=== PATIENT | female | born 1970 | race Caucasian/White ===

== ENCOUNTER 2023-10-10 10:46 | Emergency (ER) | payer SELFPAY ==
[2023-10-10] MEDS ORDERED: Ondansetron 4 MG/2 ML SDV IVPUSH ONE (11:26)
[2023-10-10] MEDS ORDERED: Sodium Chloride 0.9% 1,000 ML IV STA (11:26)
[2023-10-10 11:35] LABS: BASOPHILS ABSOLUTE AUTO 0.1 K/mm3 (0.0-0.2); BASOPHILS PERCENT AUTO 1.3 % (0.0-1.0); EOSINOPHILS ABSOLUTE AUTO 0.4 K/mm3 (0.0-0.4); EOSINOPHILS PERCENT AUTO 6.2 % (0.0-6.0); HEMATOCRIT 42.5 % (37.0-47.0); HEMOGLOBIN 14.2 gm/dl (12.0-16.0); IMMATURE GRAN ABSOLUTE AUTO 0.03 K/mm3 (0.00-0.05); IMMATURE GRAN PERCENT AUTO 0.5 % (0.0-0.4); LYMPHOCYTES ABSOLUTE AUTO 1.8 K/mm3 (1.0-4.8); LYMPHOCYTES PERCENT AUTO 28.4 % (24.0-44.0); MEAN CORPUSCULAR HEMOGLOBIN 30.6 pg (28.0-32.0); MEAN CORPUSCULAR HGB CONC 33.4 g/dl (32.0-36.0); MEAN CORPUSCULAR VOLUME 91.6 fl (83.0-99.0); MEAN PLATELET VOLUME 9.8 fl (9.4-12.3); MONOCYTES ABSOLUTE AUTO 0.6 K/mm3 (0.0-0.8); MONOCYTES PERCENT AUTO 9.5 % (0.0-8.0); NEUTROPHILS ABSOLUTE AUTO 3.4 K/mm3 (1.8-7.7); NEUTROPHILS PERCENT AUTO 54.1 % (41.0-71.0); PLATELET COUNT,PLT 289 K/mm3 (150-400); RED BLOOD CELL COUNT 4.64 M/mm3 (4.10-5.30)
[2023-10-10] MEDS: Sodium Chloride 0.9% 10 ML Syringe FLUSH PRN ×2 (11:50→12:15)
[2023-10-10 11:53] LABS: APPEARANCE,URINE CLEAR (Clear); BILIRUBIN,URINE NEGATIVE (Negative); COLOR,URINE YELLOW (Yellow); GLUCOSE,URINE NEGATIVE (Negative); KETONES,URINE 2+ (Negative); LEUKOCYTE ESTERASE,URINE TRACE (Negative); NITRITE,URINE NEGATIVE (Negative); OCCULT BLOOD,URINE NEGATIVE (Negative); PROTEIN,URINE NEGATIVE (Negative); UROBILINOGEN,URINE 0.2 (0.2-1.0)
[2023-10-10 11:54] LABS: A/G RATIO 1.1 (1-2); ALANINE AMINOTRANSFERASE,ALT 23 U/L (14-59); ALBUMIN 3.7 g/dl (3.4-5.0); ALKALINE PHOSPHATASE 90 U/L (46-116); ANION GAP 15.9 (5-15); ASPARTATE AMNIOTRANSFERASE,AST 19 U/L (15-37); BILIRUBIN TOTAL 0.6 mg/dL (0.2-1.0); BLOOD UREA NITROGEN,BUN 21 mg/dL (7-18); C-REACTIVE PROTEIN <0.2 mg/dL (<1.0); CALCIUM 8.7 mg/dL (8.5-10.1); CARBON DIOXIDE,CO2 25 mEq/L (21-32); CHLORIDE,CL 104 mEq/L (98-107); CREATININE 0.7 mg/dL (0.55-1.02); EST CRCL DRUG DOSING (CG) 96.02 mL/min; ESTIMATED GFR 103 mL/min (>60); GLUCOSE RANDOM 107 mg/dL (70-99); LIPASE 33 U/L (16-77); POTASSIUM,K 3.9 mEq/L (3.5-5.1); PROTEIN TOTAL,TP 7.2 g/dl (6.4-8.2); SODIUM,NA 141 mEq/L (136-145); TROPONIN I HIGH SENSITIVITY 6 pg/mL (<=51)
[2023-10-10] MEDS ORDERED: Iopamidol 755 Mg/ML 100 ML Bottle IVPUSH ONE (12:00)
[2023-10-10] MEDS ORDERED: Sodium Chloride 0.9% 100 ML IV SCH (12:00)
[2023-10-10 12:05] LABS: BACTERIA,URINE MODERATE /hpf (FEW); EPITHELIAL CELLS,URINE 0-5 /hpf (0-5); MUCUS,URINE MODERATE /hpf (FEW)
[2023-10-10 12:25] LABS: TSH 2.681 uIU/mL (0.358-3.74)
[2023-10-10 13:33] LABS: INFLUENZA A NAA NEGATIVE (NEGATIVE)
== END 2023-10-10 15:34 | disposition home or self-care (01) ==
LOC: JD.ED 10:46
DX: R55 Syncope and collapse (principal); H61.23 Impacted cerumen, bilateral; Z88.0 Allergy status to penicillin
CPT/HCPCS: 36415; 70450; 71046; 71275; 80053; 81001; 83690; 84443; 84484; 85025; 85379; 86140; 87502; 93005; 93246; 96361; 96374; 99285; J2405; J3490; J7030; Q9967; 93010; 99284

== ENCOUNTER 2024-10-29 11:04 | Emergency (ER) | payer MEDICAID ==
[2024-10-29] MEDS: HYDROmorphone 0.5 MG/0.5 ML Syringe IVPUSH ONE (11:38)
[2024-10-29] MEDS: Ketorolac 30 MG/ML SDV IVPUSH ONE (12:44)
[2024-10-29] MEDS: Orphenadrine 60 MG/2 ML Inj IV ONE (12:47)
[2024-10-29] MEDS: Acetaminophen/oxyCODONE 325-5 MG Tab PO ONE (13:58)
== END 2024-10-29 15:15 | disposition home or self-care (01) ==
LOC: JD.ED 11:04
DX: S32.019A Unspecified fracture of first lumbar vertebra, initial encounter for closed fracture (principal); Z88.0 Allergy status to penicillin; Z79.899 Other long term (current) drug therapy; W00.0XXA Fall on same level due to ice and snow, initial encounter; Y93.89 Activity, other specified
CPT/HCPCS: 72128; 72131; 96374; 96375; 99284; A9270; J1885; J2360

== ENCOUNTER 2024-11-03 16:31 | Inpatient (IN) | payer SELFPAY ==
[2024-11-03 17:26] LABS: APPEARANCE,URINE SLT CLOUDY (Clear); BILIRUBIN,URINE 3+ (Negative); COLOR,URINE AMBER (Yellow); GLUCOSE,URINE TRACE (Negative); KETONES,URINE 2+ (Negative); LEUKOCYTE ESTERASE,URINE 3+ (Negative); NITRITE,URINE POSITIVE (Negative); OCCULT BLOOD,URINE TRACE-INTACT (Negative); PH,URINE 5.5 (5.0-8.0); PROTEIN,URINE 2+ (Negative)
[2024-11-03 17:35] LABS: BASOPHILS PERCENT AUTO 0.3 % (0.0-1.0); IMMATURE GRAN ABSOLUTE AUTO 0.08 K/mm3 (0.00-0.05); IMMATURE GRAN PERCENT AUTO 0.5 % (0.0-0.4); LYMPHOCYTES ABSOLUTE AUTO 0.6 K/mm3 (1.0-4.8); LYMPHOCYTES PERCENT AUTO 3.9 % (24.0-44.0); MEAN CORPUSCULAR HEMOGLOBIN 29.9 pg (28.0-32.0); MEAN CORPUSCULAR HGB CONC 33.6 g/dl (32.0-36.0); MEAN PLATELET VOLUME 9.9 fl (9.4-12.3); MONOCYTES PERCENT AUTO 6.5 % (0.0-8.0); NEUTROPHILS ABSOLUTE AUTO 13.2 K/mm3 (1.8-7.7); NEUTROPHILS PERCENT AUTO 88.8 % (41.0-71.0); PLATELET COUNT,PLT 313 K/mm3 (150-400); RED BLOOD CELL COUNT 5.28 M/mm3 (4.10-5.30); WHITE BLOOD CELL COUNT,WBC 14.84 K/mm3 (3.9-11.3)
[2024-11-03 17:42] LABS: HEMOGLOBIN 15.8 gm/dl (12.0-16.0)
[2024-11-03] MEDS: Iopamidol 612 MG/ML 100 ML Bottle IVPUSH ONE (17:48)
[2024-11-03] MEDS: Sodium Chloride 0.9% 10 ML Syringe FLUSH PRN (17:49)
[2024-11-03 17:58] LABS: BACTERIA,URINE MODERATE /hpf (FEW); MUCUS,URINE MODERATE /hpf (FEW); WBC,URINE 40-50 /hpf (0-5)
[2024-11-03 18:06] LABS: ALBUMIN 3.9 g/dl (3.4-5.0); ANION GAP 19.2 (5-15); BILIRUBIN TOTAL 1.1 mg/dL (0.2-1.0); BUN/CREATININE RATIO 28.2 (14-18); CALCIUM 9.4 mg/dL (8.5-10.1); CREATININE 1.1 mg/dL (0.55-1.02); EST CRCL DRUG DOSING (CG) 60.39 mL/min; POTASSIUM,K 4.2 mEq/L (3.5-5.1); PROTEIN TOTAL,TP 7.7 g/dl (6.4-8.2)
[2024-11-03] MEDS: Ondansetron 4 MG/2 ML SDV IVPUSH ONE (18:16)
[2024-11-03] MEDS: Sodium Chloride 0.9% 1,000 ML IV ONE (18:16)
[2024-11-03] MEDS: cefTRIAXone 1 GM Vial IVPUSH ONE (19:05)
[2024-11-03] MEDS ORDERED: Ondansetron 4 MG Tab.DIS PO PRN (20:19)
[2024-11-03] MEDS: Acetaminophen/oxyCODONE 325-5 MG Tab PO PRN (20:36)
[2024-11-03] MEDS: Orphenadrine 100 MG Tab.ER PO PRN (20:36)
[2024-11-03] MEDS ORDERED: Ondansetron 4 MG/2 ML SDV IV PRN (20:41)
[2024-11-04] MEDS: oxyCODONE 5 MG Tab PO PRN (00:51)
[2024-11-04] MEDS: Melatonin 3 MG Tab PO PRN (00:52)
[2024-11-04 04:45] LABS: BASOPHILS ABSOLUTE AUTO 0.1 K/mm3 (0.0-0.2); BASOPHILS PERCENT AUTO 0.6 % (0.0-1.0); EOSINOPHILS ABSOLUTE AUTO 0.2 K/mm3 (0.0-0.4); EOSINOPHILS PERCENT AUTO 2.6 % (0.0-6.0); HEMATOCRIT 42.2 % (37.0-47.0); HEMOGLOBIN 14.2 gm/dl (12.0-16.0); IMMATURE GRAN ABSOLUTE AUTO 0.04 K/mm3 (0.00-0.05); IMMATURE GRAN PERCENT AUTO 0.5 % (0.0-0.4); LYMPHOCYTES PERCENT AUTO 11.3 % (24.0-44.0); MEAN CORPUSCULAR HEMOGLOBIN 30.1 pg (28.0-32.0); MEAN CORPUSCULAR HGB CONC 33.6 g/dl (32.0-36.0); MEAN CORPUSCULAR VOLUME 89.6 fl (83.0-99.0); MEAN PLATELET VOLUME 10.3 fl (9.4-12.3); MONOCYTES ABSOLUTE AUTO 1.2 K/mm3 (0.0-0.8); MONOCYTES PERCENT AUTO 13.8 % (0.0-8.0); NEUTROPHILS ABSOLUTE AUTO 6.2 K/mm3 (1.8-7.7); NEUTROPHILS PERCENT AUTO 71.2 % (41.0-71.0); PLATELET COUNT,PLT 288 K/mm3 (150-400); RED BLOOD CELL COUNT 4.71 M/mm3 (4.10-5.30); WHITE BLOOD CELL COUNT,WBC 8.62 K/mm3 (3.9-11.3)
[2024-11-04 04:53] LABS: HEMOGLOBIN A1C 5.5 %
[2024-11-04 05:00] LABS: ALBUMIN 3.2 g/dl (3.4-5.0); ANION GAP 12.8 (5-15); BILIRUBIN TOTAL 0.8 mg/dL (0.2-1.0); BUN/CREATININE RATIO 28.8 (14-18); C-REACTIVE PROTEIN 2.61 mg/dL (<0.30); CALCIUM 8.4 mg/dL (8.5-10.1); CREATININE 0.8 mg/dL (0.55-1.02); EST CRCL DRUG DOSING (CG) 83.04 mL/min; PHOSPHORUS 3.9 mg/dL (2.6-4.7); POTASSIUM,K 3.8 mEq/L (3.5-5.1); PROTEIN TOTAL,TP 6.5 g/dl (6.4-8.2)
[2024-11-04] MEDS: Enoxaparin 40 MG/0.4 ML Syringe SUBCUT SCH (08:08)
[2024-11-04] MEDS: Sennosides/Docusate Sodium 50-8.6 MG Tab PO PRN (08:11)
[2024-11-04] MEDS ORDERED: Naloxone 0.4 MG/ML SDV IVPUSH PRN (10:00)
[2024-11-04] MEDS: HYDROmorphone 0.5 MG/0.5 ML Syringe IVPUSH PRN (10:15)
[2024-11-04] MEDS: Polyethylene Glycol 3350 Powder 17 GM Packet PO SCH (10:15)
[2024-11-04] MEDS: cefTRIAXone 1 GM Vial IVPUSH SCH (18:33)
[2024-11-05 05:11] LABS: ALBUMIN 3.1 g/dl (3.4-5.0); ANION GAP 11.5 (5-15); BILIRUBIN TOTAL 0.6 mg/dL (0.2-1.0); C-REACTIVE PROTEIN 2.42 mg/dL (<0.30); CALCIUM 8.8 mg/dL (8.5-10.1); CREATININE 0.8 mg/dL (0.55-1.02); EST CRCL DRUG DOSING (CG) 83.04 mL/min; POTASSIUM,K 4.5 mEq/L (3.5-5.1); PROTEIN TOTAL,TP 6.3 g/dl (6.4-8.2)
[2024-11-05] MEDS ORDERED: Lactulose Soln 10 GM/15 ML 30 ML UD Cup PO PRN (11:10)
[2024-11-05] MEDS: Lactulose Soln 10 GM/15 ML 30 ML UD Cup PO SCH (11:20)
[2024-11-05] MEDS: HYDROmorphone 2 MG Tab PO PRN (13:12)
[2024-11-05] MEDS ORDERED: Sodium Chloride 0.9% 500 ML IV ONE (13:45)
[2024-11-05] MEDS: Cefepime 2 GM Vial IVPUSH ONE (14:19)
[2024-11-05] MEDS: traMADol 50 MG Tab PO PRN (19:36)
[2024-11-06] MEDS: Cefepime 2 GM Vial IVPUSH SCH (00:47)
[2024-11-06] MEDS ORDERED: Sodium Chloride 0.9% 10 ML Syringe FLUSH PRN (11:56)
[2024-11-06] MEDS: Iopamidol 612 MG/ML 100 ML Bottle IVPUSH ONE (14:59)
[2024-11-06] MEDS: Levofloxacin 750 MG Tab PO SCH (15:40)
[2024-11-06] MEDS: Acetaminophen 325 MG Tab PO PRN (15:48)
[2024-11-07] MEDS: Polyethylene Glycol 3350 Powder 17 GM Packet PO SCH (12:27)
[2024-11-07] MEDS: Acetaminophen 325 MG Tab PO SCH ×2 (14:42→17:49)
[2024-11-07] MEDS: Calcitonin (Salmon) Nasal Spray 3.7 ML Bottle NAS SCH (17:10)
[2024-11-07] MEDS: traMADol 50 MG Tab PO PRN (21:11)
[2024-11-08] MEDS: Magnesium Citrate Solution 296 ML Bottle PO ONE (10:06)
[2024-11-08 12:20] LABS: HEMATOCRIT 46.7 % (37.0-47.0); HEMOGLOBIN 15.6 gm/dl (12.0-16.0); MEAN CORPUSCULAR HEMOGLOBIN 30.1 pg (28.0-32.0); MEAN CORPUSCULAR HGB CONC 33.4 g/dl (32.0-36.0); MEAN PLATELET VOLUME 9.7 fl (9.4-12.3); PLATELET COUNT,PLT 364 K/mm3 (150-400); RED BLOOD CELL COUNT 5.19 M/mm3 (4.10-5.30); WHITE BLOOD CELL COUNT,WBC 8.15 K/mm3 (3.9-11.3)
[2024-11-08 12:40] LABS: ALBUMIN 3.7 g/dl (3.4-5.0); ANION GAP 11.8 (5-15); BILIRUBIN TOTAL 0.3 mg/dL (0.2-1.0); BUN/CREATININE RATIO 18.9 (14-18); CALCIUM 9.7 mg/dL (8.5-10.1); CREATININE 0.9 mg/dL (0.55-1.02); EST CRCL DRUG DOSING (CG) 73.81 mL/min; POTASSIUM,K 4.8 mEq/L (3.5-5.1); PROTEIN TOTAL,TP 7.5 g/dl (6.4-8.2)
[2024-11-08] MEDS: Benzocaine/Cetylpyridinium/Menthol Lozenge MUCMEM PRN (15:29)
[2024-11-08] MEDS: Lidocaine 4% Patch TOP PRN (17:04)
== END 2024-11-09 10:05 | disposition home or self-care (01) | DRG 690 ==
LOC: JD.ED 16:31 → JD.MS 19:11
PROVIDERS: ADMIT Student in an Organized Health Care Education/Training Program; ATTEND Family Medicine
DX: N12 Tubulo-interstitial nephritis, not specified as acute or chronic (principal); S32.010A Wedge compression fracture of first lumbar vertebra, initial encounter for closed fracture; K56.7 Ileus, unspecified; N39.0 Urinary tract infection, site not specified; I48.91 Unspecified atrial fibrillation; F15.90 Other stimulant use, unspecified, uncomplicated; E86.0 Dehydration; K59.03 Drug induced constipation; H54.7 Unspecified visual loss; N20.0 Calculus of kidney; R31.9 Hematuria, unspecified; T40.2X5A Adverse effect of other opioids, initial encounter; B96.89 Other specified bacterial agents as the cause of diseases classified elsewhere; L98.6 Other infiltrative disorders of the skin and subcutaneous tissue; Z90.49 Acquired absence of other specified parts of digestive tract; Z90.710 Acquired absence of both cervix and uterus; Z98.51 Tubal ligation status; Z88.0 Allergy status to penicillin; Z79.1 Long term (current) use of non-steroidal anti-inflammatories (NSAID); Z79.899 Other long term (current) drug therapy; Z87.81 Personal history of (healed) traumatic fracture; Z98.890 Other specified postprocedural states; Z95.818 Presence of other cardiac implants and grafts
CPT/HCPCS: 36415; 71046; 71046-26; 74176; 74176-26; 74177; 74177-26; 80053; 81001; 83036; 83735; 84100; 85025; 85027; 86140; 87086; 87088; 87186; 93005; 96361; 96374; 96375; 97110-GP; 97116-GP; 97161-GP; 99284; 99285-25; A9270-GY; J0692; J0696; J2405; J7030; Q9967